=== PATIENT | female | born 1995 | race Caucasian/White ===

== ENCOUNTER 2016-10-09 18:22 | Emergency (ER) | payer OTHER ==
[~2016-10-09] VITALS: Ht 165.1 cm; Wt 71.0 kg
[2016-10-09 18:33] VITALS: Ht 165.1 cm; Wt 71.0 kg
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
[2016-10-09] MEDS ORDERED: HYDROCODONE/APAP (5/325) TAB PO ONE (21:00)
--- NOTE | 2016-10-09 21:29 | RADRPT ---
PROCEDURE: XR Lumbar Spine. CLINICAL INDICATION: Injury, pain TECHNIQUE: AP, lateral and cone-down lateral views of the lumbar spine were obtained. COMPARISON: No prior studies are available for comparison. FINDINGS: There is a normal lumbar lordosis. Vertebral body heights appear normal. Intervertebral disk spaces are maintained There is no fracture or dislocation. The facet joints are unremarkable. There is no pars defect identified. The sacroiliac joints appear normal. The soft tissues appear unremarkable. IMPRESSION: Unremarkable lumbar spine. No evidence for fracture or dislocation. RPTAT: DD .Amilcar Jiménez MD, MD Date Time Electronically viewed and signed by .Amilcar Jiménez MD, on 10/09/2016 21:29 .T/
[2016-10-09] MEDS ORDERED: IBUP400T22 PO (21:38)
== END 2016-10-09 21:53 | disposition home or self-care (01) ==
LOC: FTE 18:22
DX: S80.11XA Contusion of right lower leg, initial encounter (principal); S80.811A Abrasion, right lower leg, initial encounter; V49.40XA Driver injured in collision with unspecified motor vehicles in traffic accident, initial encounter
CPT/HCPCS: 72100; Z7502; Z7610; 99283

== ENCOUNTER 2017-01-29 21:15 | Emergency (ER) | payer OTHER ==
[~2017-01-29] VITALS: Wt 74.1 kg
[~2017-01-29 21:15] MED LIST: IBUP400T22 PO
[2017-01-29 21:36] VITALS: Wt 74.1 kg
--- NOTE | 2017-01-30 01:47 | ERD ---
ER Documentation Chief Complaint Chief Complaint pelvic pain started today, nausea, moderate vag bleeding; unk preg status HPI 21-year-old female presents here to emergency department for complaints of pelvic pain vaginal bleeding that started 3 days ago, patient was seen by primary care doctor, had a positive test and negative test, did hormone testing at her primary care doctor but is waiting for results. Patient continues to have vaginal bleeding, LMP was December 24, 2016. Patient had been soaking one pad per day. ROS All systems reviewed and are negative except as per history of present illness. Medications Home Meds Active Scripts Ibuprofen* (Motrin*) 400 Mg Tab, 400 MG PO Q6, #30 TAB Prov:ERROL PAEZ PA-C 10/09/16 Allergies Allergies: Coded Allergies: No Known Allergy (Verified Allergy, Mild, 12/01/10) PMhx/Soc Medical and Surgical Hx: pt denies Medical Hx History of Surgery: Yes (APPENDECTOMY; BREAST AUGMENTATION) Anesthesia Reaction: No Hx Neurological Disorder: No Hx Respiratory Disorders: No Hx Cardiac Disorders: No Hx Psychiatric Problems: No Hx Miscellaneous Medical Probl: No Hx Alcohol Use: No Hx Substance Use: No Hx Tobacco Use: No Smoking Status: Never smoker FmHx Family History: No coronary disease, No diabetes, No other Physical Exam Vitals Vital Signs Date Time Temp Pulse Resp B/P Pulse Ox O2 Delivery O2 Flow Rate FiO2 01/29/17 21:36 98.0 96 20 112/80 98 Physical Exam GENERAL: The patient is well developed and appropriate for usual state of health, in no apparent distress. CHEST: Clear to auscultation bilaterally. There are no rales, wheezes or rhonchi. HEART: Regular rate and rhythm. No murmurs, clicks, rubs or gallops. No S3 or S4. ABDOMEN: Soft, nontender and nondistended. Good bowel sounds. No rebound or guarding. No gross peritonitis. No gross organomegaly or masses. No Casanova sign or McBurney point tenderness. BACK: No midline or flank tenderness. EXTREMITIES: Equal pulses bilaterally. There is no peripheral clubbing, cyanosis or edema. No focal swelling or erythema. Full range of motion. Grossly neurovascularly intact. NEURO: Alert and oriented. Cranial nerves 2-12 intact. Motor strength in all 4 extremities with 5/5 strength. Sensation grossly intact. Normal speech and gait. SKIN: There is no apparent rash or petechia. The skin is warm and dry. HEMATOLOGIC AND LYMPHATIC: There is no evidence of excessive bruising or lymphedema. No gross cervical, axillary, or inguinal lymphadenopathy. Result Diagram: 01/30/17 0114 Results 24 hrs Laboratory Tests Test 01/30/17 01:14 01/30/17 01:15 White Blood Count 6.610^3/ul Red Blood Count 4.7910^6/ul Hemoglobin 13.8g/dl Hematocrit 41.7% Mean Corpuscular Volume 87.1fl Mean Corpuscular Hemoglobin 28.8pg Mean Corpuscular Hemoglobin Concent 33.1g/dl Red Cell Distribution Width 13.1% Platelet Count 99648^3/UL Mean Platelet Volume 10.4fl Neutrophils % 57.8% Lymphocytes % 31.9% Monocytes % 8.6% Eosinophils % 1.2% Basophils % 0.3% Nucleated Red Blood Cells % 0.0/100WBC Neutrophils # 3.810^3/ul Lymphocytes # 2.110^3/ul Monocytes # 0.610^3/ul Eosinophils # 0.110^3/ul Basophils # 0.010^3/ul Nucleated Red Blood Cells # 0.010^3/ul Beta HCG, Quantitative 9.0mIU/ml Urine Color YELLOW Urine Clarity CLEAR Urine pH 5.0 Urine Specific [place] 1.026 Urine Ketones NEGATIVEmg/dL Urine Nitrite NEGATIVEmg/dL Urine Bilirubin NEGATIVEmg/dL Urine Urobilinogen 1+mg/dL Urine Leukocyte Esterase NEGATIVELeu/ul Urine Microscopic RBC 6/HPF Urine Microscopic WBC 3/HPF Urine Squamous Epithelial Cells FEW/HPF Urine Mucus FEW/HPF Urine Hemoglobin 3+mg/dL Urine Glucose NEGATIVEmg/dL Urine Total Protein NEGATIVEmg/dl PROCEDURE: ULTRASOUND PELVIS CLINICAL INDICATION: 21-year-old female with vaginal bleeding. TECHNIQUE: Multiple sonographic images of the pelvis were obtained utilizing a transabdominal and endovaginal technique. The images were reviewed on a PACS workstation. COMPARISON: None. FINDINGS: The uterus is visualized and measures 7.8 x 2.7 x 4.4 cm. The endometrial echo complex is normal and measures within normal limits 5.6 mm. There is mild free fluid within the cul-de-sac and right adnexal regions. The right ovary has a normal echotexture and measures 2.6 x 1.4 x 2.3 cm. The left ovary has a normal echotexture and measures 2.9 x 1.1 x 2.5 cm. There is flow identified within the ovaries bilaterally. No adnexal masses are noted. IMPRESSION: 1. No sonographic evidence for an intrauterine gestation. If the patient has a positive test, an ectopic cannot be excluded. Clinical correlation is necessary. 2. Mild pelvic free fluid. .Miki Dwyer MD, MD Date Time Electronically viewed and signed by .Miki Dwyer MD, MD on 01/30/2017 02:09 .M/ CC: MARCELL MARLEY LCAC RADAR OPERATOR/NAVIGATOR Procedures/MDM Medical Decision Making: Patients vaginal bleeding can be from her menstruation, can be also from very early . Patient does not show any evidence of hypovolemic shock. Patients hemoglobin and hematocrit is stable. There is low suspicion for ectopic . PAULIE results show no Uterine . BetaHCG Quantitative is very low.The patient is Rh+, does not need RhoGAM this time. There is no signs of symptoms of dehydration. There is low suspicion for sepsis. Patient appears well and is hemodynamically stable. Disposition: Home. Condition: Stable Instructions: Patient is advised to do bed rest, avoid heavy lifting, and avoid having sex until cleared by OB doctor. Patient is advised to follow up with OB doctor or here at the ER in 48 hours for reevaluation of symptoms, repeat beta HCG quantitative and ultrasound. Patient is advised that is symptoms are worst, severe bleeding, dizziness, severe abdominal pain, fever, worst signs and symptoms to return to the emergency department immediately. Disclaimer: Inadvertent spelling and grammatical errors are likely due to EHR/ dictation software use and do not reflect on the overall quality of patient care. Also, please note that the electronic time recorded on this note does not necessarily reflect the actual time of the patient encounter. Departure Diagnosis: Primary Impression: Vaginal bleeding Condition: Stable Patient Instructions: Dysfunctional Uterine Bleeding Additional Instructions: Patient is advised to do bed rest, avoid heavy lifting, and avoid having sex until cleared by OB doctor. Patient is advised to follow up with OB doctor or here at the ER in 48 hours for reevaluation of symptoms, repeat beta HCG quantitative and ultrasound. Patient is advised that is symptoms are worst, severe bleeding, dizziness, severe abdominal pain, fever, worst signs and symptoms to return to the emergency department immediately. MARCELL MARLEY NP Jan 30, 2017 01:47
[2017-01-30 01:53] LABS: BASOPHILS % 0.3 % (0.0-2.0); EOSINOPHILS # 0.1 10^3/ul (0.0-0.5); EOSINOPHILS % 1.2 % (0.0-7.0); HEMATOCRIT 41.7 % (37.0-47.0); HEMOGLOBIN 13.8 g/dl (12.0-16.0); LYMPHOCYTES # 2.1 10^3/ul (0.8-2.9); LYMPHOCYTES % 31.9 % (15.0-51.0); MEAN CORPUSCULAR HEMOGLOBIN 28.8 pg (29.0-33.0); MEAN CORPUSCULAR HGB CONC 33.1 g/dl (32.0-37.0); MEAN CORPUSCULAR VOLUME 87.1 fl (82.0-101.0); MEAN PLATELET VOLUME 10.4 fl (7.4-10.4); MONOCYTE # 0.6 10^3/ul (0.3-0.9); MONOCYTES % 8.6 % (0.0-11.0); NEUTROPHIL # 3.8 10^3/ul (1.6-7.5); NEUTROPHILS % 57.8 % (39.0-77.0); PLATELET COUNT 335 10^3/UL (140-415); RED BLOOD COUNT 4.79 10^6/ul (4.20-5.40); RED CELL DISTRIBUTION WIDTH 13.1 % (11.5-14.5); WHITE BLOOD COUNT 6.6 10^3/ul (4.8-10.8)
[2017-01-30 02:00] LABS: ADD UMIC YES; UR ASCORBIC ACID NEGATIVE (NEGATIVE); UR BILIRUBIN (Dip) NEGATIVE (NEGATIVE); UR BLOOD (Dip) 3+ mg/dL (NEGATIVE); UR CLARITY CLEAR (CLEAR); UR COLOR YELLOW (YELLOW); UR GLUCOSE (Dip) NEGATIVE (NEGATIVE); UR KETONES (Dip) NEGATIVE (NEGATIVE); UR LEUKOCYTE ESTERASE (Dip) NEGATIVE Leu/ul (NEGATIVE); UR MUCUS FEW /HPF (NONE SEEN); UR NITRITE (Dip) NEGATIVE (NEGATIVE); UR RBC 6 /HPF (0-5); UR SPECIFIC GRAVITY (Dip) 1.026 (1.003-1.030); UR SQUAMOUS EPITHELIAL CELL FEW /HPF (FEW); UR TOTAL PROTEIN (Dip) NEGATIVE (NEGATIVE); UR UROBILINOGEN (Dip) 1+ mg/dL (NEGATIVE)
--- NOTE | 2017-01-30 02:09 | RADRPT ---
PROCEDURE: ULTRASOUND PELVIS CLINICAL INDICATION: 21-year-old female with vaginal bleeding. TECHNIQUE: Multiple sonographic images of the pelvis were obtained utilizing a transabdominal and endovaginal technique. The images were reviewed on a PACS workstation. COMPARISON: None. FINDINGS: The uterus is visualized and measures 7.8 x 2.7 x 4.4 cm. The endometrial echo complex is normal and measures within normal limits 5.6 mm. There is mild free fluid within the cul-de-sac and right adne xal regions. The right ovary has a normal echotexture and measures 2.6 x 1.4 x 2.3 cm. The left ova ry has a normal echotexture and measures 2.9 x 1.1 x 2.5 cm. There is flow identified within the ov allen bilaterally. No adnexal masses are noted. IMPRESSION: 1. No sonographic evidence for an intrauterine gestation. If the patient has a positive test, an ectopic cannot be excluded. Clinical correlation is necessary. 2. Mild pelvic free fluid. .Miki Dwyer MD, MD Date Time Electronically viewed and signed by .Miki Dwyer MD, on 01/30/2017 02:09 .M/
== END 2017-01-30 02:56 | disposition home or self-care (01) ==
LOC: FTE 21:15
DX: N93.9 Abnormal uterine and vaginal bleeding, unspecified (principal)
CPT/HCPCS: 36415; 76830; 76856; 81001; 84702; 85025; 86900; 86901; Z7502